=== PATIENT | female | born 1960 | race Caucasian/White ===

== ENCOUNTER 2017-03-16 14:40 | Observation (INO) ==
[2017-03-16 16:24] LABS: Basophils % 0.3 % (0.0-0.8); Eosinophils % 0.4 % (0.00-10.9); Hematocrit 42.5 VOL% (35.7-47.0); Hemoglobin 14.1 GM/DL (12.0-16.0); Immature Granulocytes % 0.5 %; Immature Granulocytes Absolute 0.05 #; Lymphocytes # 2.8 10*3/uL (1.4-4.0); Lymphocytes % 26.6 % (21.3-54.2); Mean Corpuscular HGB Conc 33.2 GM/DL (32-36); Mean Corpuscular Hemoglobin 28 PG (27-34); Mean Corpuscular Volume 83.2 FL (87-102); Mean Platelet Volume 11.2 FL (9.6-12.0); Monocytes # 0.9 10*3/uL (0.11-0.8); Neutrophils # 6.6 10*3/uL (1.4-7.4); Neutrophils % 63.2 % (38.7-73.9); Platelet Count 330 T/CUMM (130-400); Red Blood Count 5.11 MC/CUMM (3.8-5.5); White Blood Count 10.4 T/CUMM (4-12)
[2017-03-16 16:50] LABS: Albumin 3.9 G/DL (3.4-5.0); Bilirubin,Total 0.7 MG/DL (0.2-1.0); Osmolality,Calculated 270.8 MOS/KG (273-304); Potassium 3.7 MMOL/L (3.5-5.1); Total Protein 7.5 G/DL (6.4-8.3)
[2017-03-16 16:51] LABS: Troponin I Only < 0.015 NG/ML (0.00-0.045)
[2017-03-16] MEDS ORDERED: CIPROFLOXACIN/DEXAMETHASONE OTIC SUSP 7.5 ML BOTTLE RIGHT EAR STA (16:54)
[2017-03-16] MEDS ORDERED: methylPREDNISolone SOD SUC 125 MG/2 ML VIAL IV STA (16:55)
[2017-03-16] MEDS ORDERED: ALBUTEROL/IPRATROPIUM 3 ML NEB RESP TX STA (16:55)
[2017-03-16] MEDS ORDERED: CIPROFLOXACIN/DEXAMETHASONE OTIC SUSP 7.5 ML BOTTLE ONE (17:37)
[2017-03-16] MEDS ORDERED: methylPREDNISolone SOD SUC 125 MG/2 ML VIAL ONE (17:37)
[2017-03-16] MEDS ORDERED: LEVOFLOXACIN INJ 750 MG in PREMIX 1 EACH IV STA (17:38)
[2017-03-16] MEDS ORDERED: LEVOFLOXACIN INJ 150 ML IV ONE (18:06)
[2017-03-16 18:33] LABS: Apearance,Urine Slightly Hazy (Clear); Bacteria,Urine Occasional /HPF (Few); Bilirubin,Urine Negative (Negative); Blood, Urine Negative (Negative); Glucose,Urine (UA) Negative (Negative); Ketones,Urine 5 mg/dL (Negative); Mucus,Urine Few /LPF (Occasional); Nitrite,Urine Negative (Negative); Protein,Urine Negative; RBC,Urine 1 /HPF (0-4); Squamous Epithelial Cell,Urine Occasional /HPF (0-10); Urine Color Yellow (Yellow); Urine Specific Gravity 1.023 (1.001-1.035); Urine Urobilinogen < 2.0 EU/DL (0.2-1.0); WBC,Urine 5 /HPF (0-6)
[2017-03-16] MEDS ORDERED: SODIUM CHLORIDE 0.9% 1,000 ML IV STA (19:39)
[2017-03-16] MEDS ORDERED: ONDANSETRON 4 MG/2 ML VIAL IV PRN (20:11)
[2017-03-16] MEDS ORDERED: IBUPROFEN 600 MG TABLET PO PRN (20:15)
[2017-03-16] MEDS ORDERED: ALBUTEROL/IPRATROPIUM 3 ML NEB RESP TX PRN (20:16)
[2017-03-16] MEDS ORDERED: INFLUENZA VIRUS VACCINE 0.5 ML SYRINGE IM ONE (22:27)
[2017-03-16] MEDS: SODIUM CHLORIDE 0.9% 1,000 ML IV SCH (22:33)
[2017-03-16] MEDS: CIPROFLOXACIN/DEXAMETHASONE OTIC SUSP 7.5 ML BOTTLE RIGHT EAR SCH (22:57)
[2017-03-16] MEDS: ENOXAPARIN 40 MG/0.4 ML SYRINGE SUBCUT SCH (23:05)
[2017-03-16] MEDS: GABAPENTIN 600 MG TABLET PO SCH (23:05)
[2017-03-16] MEDS: ACETAMINOPHEN 325 MG TABLET PO PRN (23:05)
[2017-03-16] MEDS: PROPRANOLOL 40 MG TABLET PO SCH (23:05)
[2017-03-17 05:51] LABS: Basophils % 0.1 % (0.0-0.8); Hematocrit 37.5 VOL% (35.7-47.0); Hemoglobin 12.5 GM/DL (12.0-16.0); Immature Granulocytes % 0.7 %; Immature Granulocytes Absolute 0.05 #; Lymphocytes % 14.3 % (21.3-54.2); Mean Corpuscular HGB Conc 33.3 GM/DL (32-36); Mean Corpuscular Hemoglobin 28 PG (27-34); Mean Corpuscular Volume 82.8 FL (87-102); Mean Platelet Volume 11.6 FL (9.6-12.0); Monocytes # 0.1 10*3/uL (0.11-0.8); Monocytes % 1.6 % (1.7-12.7); Neutrophils # 5.7 10*3/uL (1.4-7.4); Neutrophils % 83.3 % (38.7-73.9); Platelet Count 305 T/CUMM (130-400); Red Blood Count 4.53 MC/CUMM (3.8-5.5); Red Cell Distribution Width 12.9 % (9.3-17.3); White Blood Count 6.9 T/CUMM (4-12)
[2017-03-17 06:21] LABS: Calcium 9.2 MG/DL (8.5-10.1); Osmolality,Calculated 280.5 MOS/KG (273-304); Potassium 3.9 MMOL/L (3.5-5.1)
[2017-03-17] MEDS: GABAPENTIN 600 MG TABLET PO SCH ×3 (09:25→21:44)
[2017-03-17] MEDS: PANTOPRAZOLE 40 MG TABLET PO SCH (09:25)
[2017-03-17] MEDS: FAMOTIDINE 20 MG TABLET PO SCH (09:26)
[2017-03-17] MEDS: LEVOFLOXACIN 750 MG TABLET PO SCH (09:26)
[2017-03-17] MEDS: CITALOPRAM 40 MG TABLET PO SCH (09:26)
[2017-03-17] MEDS: PROPRANOLOL 40 MG TABLET PO SCH ×2 (09:26→21:44)
[2017-03-17] MEDS: CETIRIZINE 10 MG TABLET PO SCH (09:26)
[2017-03-17] MEDS: CIPROFLOXACIN/DEXAMETHASONE OTIC SUSP 7.5 ML BOTTLE RIGHT EAR SCH (09:28)
[2017-03-17] MEDS: SODIUM CHLORIDE 0.9% 1,000 ML IV SCH ×2 (09:29→17:54)
[2017-03-17] MEDS: ACETAMINOPHEN 325 MG TABLET PO PRN ×2 (14:14→17:55)
[2017-03-17] MEDS: ENOXAPARIN 40 MG/0.4 ML SYRINGE SUBCUT SCH (21:44)
[2017-03-18] MEDS: CIPROFLOXACIN/DEXAMETHASONE OTIC SUSP 7.5 ML BOTTLE RIGHT EAR SCH ×3 (02:29→21:30)
[2017-03-18] MEDS: SODIUM CHLORIDE 0.9% 1,000 ML IV SCH ×2 (03:57→18:17)
[2017-03-18] MEDS: ACETAMINOPHEN 325 MG TABLET PO PRN ×2 (06:48→16:04)
[2017-03-18] MEDS: FAMOTIDINE 20 MG TABLET PO SCH (09:02)
[2017-03-18] MEDS: GABAPENTIN 600 MG TABLET PO SCH ×3 (09:02→20:53)
[2017-03-18] MEDS: PANTOPRAZOLE 40 MG TABLET PO SCH (09:02)
[2017-03-18] MEDS: LEVOFLOXACIN 750 MG TABLET PO SCH (09:02)
[2017-03-18] MEDS: CITALOPRAM 40 MG TABLET PO SCH (09:02)
[2017-03-18] MEDS: CETIRIZINE 10 MG TABLET PO SCH (09:02)
[2017-03-18] MEDS: PROPRANOLOL 40 MG TABLET PO SCH ×2 (09:02→20:53)
[2017-03-18] MEDS ORDERED: LIDOCAINE 1%/EPI INJ 20 ML VIAL NERVEBLOCK ONE (16:20)
[2017-03-18] MEDS ORDERED: DEXAMETHASONE 4 MG/1 ML VIAL IV ONE (16:24)
[2017-03-18] MEDS: ENOXAPARIN 40 MG/0.4 ML SYRINGE SUBCUT SCH (20:53)
[2017-03-19] MEDS: SODIUM CHLORIDE 0.9% 1,000 ML IV SCH ×2 (06:57→10:40)
[2017-03-19] MEDS: LEVOFLOXACIN 750 MG TABLET PO SCH (09:00)
[2017-03-19] MEDS: CIPROFLOXACIN/DEXAMETHASONE OTIC SUSP 7.5 ML BOTTLE RIGHT EAR SCH (09:00)
[2017-03-19] MEDS: CITALOPRAM 40 MG TABLET PO SCH (09:01)
[2017-03-19] MEDS: PROPRANOLOL 40 MG TABLET PO SCH (09:01)
[2017-03-19] MEDS: GABAPENTIN 600 MG TABLET PO SCH ×2 (09:01→13:54)
[2017-03-19] MEDS: FAMOTIDINE 20 MG TABLET PO SCH (09:01)
[2017-03-19] MEDS: PANTOPRAZOLE 40 MG TABLET PO SCH (09:01)
[2017-03-19] MEDS: CETIRIZINE 10 MG TABLET PO SCH (09:02)
[2017-03-19 11:46] VITALS: BP 147/67
== END 2017-03-19 15:53 | disposition home or self-care (01) ==
LOC: N.EDINP 14:40 → N.ED 14:40 → N.4E 20:41
PROVIDERS: ADMIT Hospitalist; ATTEND Hospitalist